=== PATIENT | male | born 1960 | race African-American/Black ===

== ENCOUNTER 2021-01-07 06:16 | Day surgery (SDC) | payer SELFPAY ==
[2021-01-07] VITALS (10 sets, daily range): BP systolic 75–147; BP diastolic 51–83; PULSE 53–75; RESP 16; TEMP 36.1–36.5; O2SAT 95–100; BMI 39.9
--- NOTE | 2021-01-07 06:29 | ECHOD_ITS ---
Reason For Study: LVH Procedure This was a 2D Doppler, Color Flow transthoracic echocardiogram. Myocardial strain analysis was performed in this exam to aid in the assessment of cardiac function. Exam performed in department. Left Ventricle Normal LV size. Moderate eccentric left ventricular hypertrophy. Left ventricular systolic function is normal. The estimated ejection fraction is 65 %. Stage 1 diastolic dysfunction. No regional wall motion abnormalities noted. Right Ventricle Normal RV size. Normal systolic function. Atria Normal left atrium. Normal right atrium. Mitral Valve Normal mitral valve. Tricuspid Valve Normal tricuspid valve. Unable to estimate RV systolic pressure due to inadequate jet, pulmonary artery pressure probably normal. Aortic Valve Normal aortic valve. Trisinus/trileaflet aortic valve. Pulmonic Valve Normal pulmonic valve. Mild (1+) pulmonic valve insufficiency. Great Vessels Normal aortic root. The pulmonary artery is normal size. Normal inferior vena cava. Pericardium/Pleural No pericardial effusion. MMode/2D Measurements & Calculations LVIDd: 4.1 cm IVSd: 1.4 cm Ao root diam: 3.7 cm LVIDs: 2.2 cm LVPWd: 1.2 cm RVDd: 2.7 cm FS: 46.8 % LAV(MOD-bp): 27.7 ml LVAd ap4: 26.5 cm2 LVAd ap2: 23.6 cm2 LAV(MOD-bp) Indexed: 13.8 ml/m2 LVLd ap4: 8.4 cm LVLd ap2: 8.0 cm LAV(MOD-sp2): 36.0 ml EDV(MOD-sp4): 69.4 ml EDV(MOD-sp2): 61.4 ml LAV(MOD-sp4): 18.0 ml EDV(sp4-el): 70.6 ml EDV(sp2-el): 59.7 ml LVAs ap4: 14.4 cm2 LVAs ap2: 12.7 cm2 LVLs ap4: 7.3 cm LVLs ap2: 7.0 cm ESV(MOD-sp4): 26.3 ml ESV(MOD-sp2): 20.3 ml ESV(sp4-el): 24.1 ml ESV(sp2-el): 19.6 ml EF(MOD-sp4): 62.1 % EF(MOD-sp2): 67.0 % EF(sp4-el): 65.8 % SV(MOD-sp4): 43.1 ml SV(MOD-sp2): 41.1 ml SV(sp4-el): 46.4 ml LA dimension(2D): 3.5 cm LA A4 area: 9.6 cm2 RA A4 area: 11.1 cm2 Doppler Measurements & Calculations MV E max case: 46.3 cm/sec Lat Peak E' Case: 9.1 cm/sec Med Peak E' Case: 5.8 cm/sec MV A max case: 58.3 cm/sec E/E' lat: 5.1 E/E' med: 8.1 MV E/A: 0.79 Ao V2 max: 102.7 cm/sec LV V1 max: 93.4 cm/sec PA V2 max: 106.7 cm/sec Ao max P.2 mmHg LV V1 max P.5 mmHg ECHO/Echo Complete Interpretation Summary Normal LV size. Moderate eccentric left ventricular hypertrophy. Left ventricular systolic function is normal. The estimated ejection fraction is 65 %. Stage 1 diastolic dysfunction. The global longitudinal strain is normal. The global longitudinal strain = -20. 9 % (normal). Ordering Physician: Arnold Mckeon Referring Physician: Arnold Mckeon Performed By: Darlene Thomas RDCS
--- NOTE | 2021-01-07 06:34 | CT_ITS ---
STUDY: CARDIAC CALCIUM SCORING - CT CHEST REASON FOR EXAM: Male, 60 years old. CAD RADIATION DOSAGE (If Supplied By Facility): CTDIvol = ( ) mGy, DLP = ( ) mGycm TECHNIQUE: Axial non-enhanced images were acquired through the heart for the sole purpose of measuring coronary artery calcium. Individualized dose optimization techniques were used for this CT. COMPARISON: None. FINDINGS: Calcium score is 0. Extracardiac portions of the chest are unremarkable. There are no lung lesions. Mediastinal contents are normal. CT/Limited Chest CT w/CCTA IMPRESSION: 1. Calcium score 0. 2. A Calcium Score of 0 places the patient in the lowest population percentile. 3. Low future predicted rate of adverse cardiovascular events, less than 10% over the next 10 years. Please go to: [email or web address] , for a description of the calculator. Electronically Signed: Satya Lagos MD at 12:34 EDT Tel , Service support ,
[2021-01-07 07:08] LABS: Absolute Lymphocyte Count 2.26 X10^3/uL (0.83-4.51); Absolute Neutrophil Count 1.4 X10^3/uL (2.0-7.7); Basophil# 0.03 X10^3/uL; Basophil% 0.7 % (0-1); Eosinophil# 0.26 X10^3/uL; Eosinophils% 5.9 % (0-5); Hematocrit 46.2 % (40-54); Hemoglobin 15.1 g/dL (13.0-16.5); Lymphocyte # 2.26 X10^3/ul (0.83-4.51); Lymphocyte % 51.4 % (19-41); Mean Corp Hgb Conc 32.7 g/dL (32-36); Mean Corpuscular Hgb 28.5 pg (27.0-32.0); Mean Corpuscular Volume 87.2 fL (80-94); Monocyte# 0.48 X10^3/uL; Monocyte% 10.9 % (0-10); NRBC Flagged by Analyzer 0 % (0-5); Neutrophil # 1.37 X10^3/uL (2.7-7.7); Neutrophil % 31.1 % (47-70); Platelet Count 149 K/mm3 (150-450); RBC Distribution Width CV 12.6 % (11.6-14.6); RBC Distribution Width SD 40.5 fl (35.1-43.9); White Blood Count 4.4 K/mm3 (4.4-11.0)
[2021-01-07 07:53] LABS: AST(SGOT) 18 U/L (15-37); Alanine Aminotransfer ALT/SGPT 28 U/L (16-61); Albumin, Serum 3.9 g/dL (3.2-5.0); Alkaline Phosphatase 68 U/L (45-117); Anion Gap 8 (5-15); BUN 14 mg/dL (7-18); BUN/Creat Ratio 12.4 RATIO (10-20); Bilirubin, Direct 0.21 mg/dL (0.00-0.30); Calcium,Total 9.3 mg/dL (8.5-10.1); Chloride 104 mmol/L (98-107); Cholesterol 220 mg/dL (200); Creatinine, Serum 1.13 mg/dL (0.70-1.30); EST Glomerular Filtration Rate 70 mL/min (>60); Est Glom Filt Rate - Afr Amer 85 mL/min (>60); Globulin 3.3 g/dL (2.2-4.2); Glucose 91 mg/dL (74-106); High Density Lipoprotein 54 mg/dL; PSA,Total - Annual Screen 0.88 ng/mL (0.00-4.00); Potassium 4.1 mmol/L (3.5-5.1); Protein, Total 7.2 g/dL (6.4-8.2); Sodium Level 138 mmol/L (136-145); Thyroid Stim Hormone (TSH) 0.99 uIU/mL (0.358-3.74); Triglycerides 70 mg/dL; Very Low Density Lipoprotein 14 mg/dL (5-40)
--- NOTE | 2021-01-07 09:11 | STRESSREP ---
Stress Test Report Exercise myocardial perfusion stress test. Reason for evaluation evaluation of chest pain. Medications Crestor. Stress protocol: Resting EKG demonstrates normal sinus rhythm with a rate of 59 bpm. Resting blood pressure is 146/86 mmHg. Terminal T wave inversions noted in lead V3, V4 and V5. The patient exercised according to the regular Frantz protocol, for a total duration of 7 minutes and 15 seconds. The patient completed 1 minute and 15 seconds into stage III of the Frantz protocol. The maximum heart rate attained was 139 bpm which was 86% of max predicted heart rate the maximum workload was 10.1 metabolic equivalents. At rest there were terminal T wave inversions noted at peak exercise upsloping ST changes were noted with did not meet the criteria for ischemia. No clinical angina was noted. Atypical chest discomfort was noted. Occasional premature ventricular complexes were present. The test was terminated due to dyspnea and shortness of breath. The peak blood pressure was 172/92 mmHg. Myocardial perfusion protocol. 14.1 mCi of technetium 99m sestamibi was injected at rest. The patient exercised according to regular Frantz protocol for total duration of 7 minutes and 15 seconds. At peak exercise 44.2 mCi of technetium 99m sestamibi was injected stress images were obtained stress and rest images were reconstructed and compared in the short axis vertical long and horizontal long axis. Gated images were also obtained. Perfusion SPECT analysis: Review of the stress images demonstrated normal uptake of tracer noted in all areas of the myocardium. The resting images similarly demonstrated normal uptake of tracer noted in all areas of the myocardium. No areas of reversibility are noted to suggest ischemia. No previous infarct is noted. Gated SPECT analysis: The gated ejection fraction is 67%. Conclusion: Normal exercise myocardial perfusion stress test at a high workload. Good functional aerobic capacity. No ischemia noted. Preserved ejection fraction.
[2021-01-07] MEDS: Nitroglycerin SL (ED/IMG/CATH) 0.4 MG TABLET SL (11:27)
--- NOTE | 2021-01-07 12:00 | EGD_PTH ---
PATIENT: CORETTA WILSON LOC: [facility] [place] U#:[id number] AGE/SX: 60/M ROOM: RE01/07/[address]: Dr. Arnold Mckeon MD : 1960 BED: DIS: 01/07/2021 SPEC #: [id number] RECD: 01/07/21 13:16 STATUS: AURELIO REQ #: [id number] EDWIN: 01/07/21 12:[address]: Grant Wright DEPT: SURGICAL PATHOLOGY RECD BY: Hannah Hernandez ENTERED: 01/07/21 13:38 SP TYPE: EGD BIOPSY OTHR DR: Dr. Arnold Mckeon MD No Primary Care Phys Tissues: Esophagus, NOS Procedures: Special Stain Group II Surgery Specimen Level IV Alcian Blue/PAS (control) Comments: @ Ordering doctor for SUIV edited from to @ by RGOOD at 01/07/21 150 @ Submitting doctor edited from to @ by RGOOD at 01/07/21 1503 HEADER OPERATION: EGD ([facility] [place] PRE-OP DIAGNOSIS: Epigastric tenderness TISSUE SUBMITTED: Biopsy of distal esophagus MICROSCOPIC DIAGNOSIS Distal esophagus, biopsy: Fragments of gastroesophageal mucosa with mild chronic inflammation. Intestinal metaplasia (goblet cell metaplasia) not identified. See comment. PENNIE:reinier 01/08/2021 COMMENT Alcian blue/PAS stain with matched control is used in the evaluation of the specimen. MICROSCOPIC DESCRIPTION Slides are reviewed. GROSS DESCRIPTION Received in fixative is one container labeled with the patient's name and designated biopsy of distal esophagus. The specimen consists of multiple irregular fragments of light jean soft tissue that in aggregate measure 0.5 x 0.5 x 0.1 cm. The specimen is totally submitted in one cassette. / PENNIE:reinier 01/07/21 TC:3 CPT: 67263, 17948
[2021-01-07] MEDS: Lactated Ringers 1,000 ML 100 ML IV (12:13)
--- NOTE | 2021-01-07 12:24 | PCM.HP.BLA ---
History and Physical Date of Admission: 01/07/21 60-year-old gentleman with past medical history of of LVH hyperlipidemia, hypertension and history of gastroesophageal reflux disease presents for the evaluation of worsening belching and epigastric pain. He has been on Nexium therapy without any relief. The pain happens sometimes every day. Usually last about 20 min and then goes away. It is mostly postprandial. His weight has been stable. He also gets some intermittent nausea. He denies any chest pain or shortness of breath. Past medical history: Hypertension, LVH, GERD Family history: Negative for any GI malignancy, negative for CAD Social history: Former smoker, currently negative for cigarettes. Occasional alcohol Allergies: No known drug allergies Physical examination: Blood is 110/69, pulse of 75 respiratory 16 temperature is 97,, Generally no acute distress On HEENT-normocephalic atraumatic Neck-no JVD lymphadenopathy Heart-positive S1-S2, Respiratory-clear to auscultation bilaterally Abdomen mildly tender in the epigastric region Rectal exam was deferred Extremities no clubbing cyanosis or edema Assessment and plan very pleasant 60 gentleman comes in with epigastric tenderness differential diagnosis does include peptic ulcer disease, hiatal hernia, gastritis, atypical reflux disease. Also differential diagnosis would be biliary colic. We will evaluate his upper GI tract he was explained alternatives, risk, benefits including nondistended bleeding, infection, sepsis, perforation, need for emergency or . He will have an ASA of 1.
--- NOTE | 2021-01-07 12:46 | OP.EGD_ITS ---
Patient Name: Jorge A Wilcox Procedure Date: 01/07/2021 12:17 PM Date of : 1960 Age: 60 Procedure: Upper GI endoscopy Indications: Epigastric abdominal pain, Heartburn Providers: Grant Wright DO Referring MD: Arnold Mckeon Medicines: Propofol per Anesthesia Patient Profile: This is a 60 year old male. Refer to note in patient chart for documentation of history and physical. Patient has symptoms. The symptoms first began October. Complications: No immediate complications. Procedure: Pre-Anesthesia Assessment: - Prior to the procedure, a History and Physical was performed, and patient medications and allergies were reviewed. The patient is competent. The risks and benefits of the procedure and the sedation options and risks were discussed with the patient. All questions were answered and informed consent was obtained. Patient identification and proposed procedure were verified by the physician in the pre-procedure area. Mental Status Examination: alert and oriented. Airway Examination: normal oropharyngeal airway and neck mobility. Respiratory Examination: clear to auscultation. CV Examination: normal. Prophylactic Antibiotics: The patient does not require prophylactic antibiotics. Prior Anticoagulants: The patient has taken no previous anticoagulant or antiplatelet agents. ASA Grade Assessment: II - A patient with mild systemic disease. After reviewing the risks and benefits, the patient was deemed in satisfactory condition to undergo the procedure. The anesthesia plan was to use moderate sedation / analgesia (conscious sedation). Immediately prior to administration of medications, the patient was re-assessed for adequacy to receive sedatives. The heart rate, respiratory rate, oxygen saturations, blood pressure, adequacy of pulmonary ventilation, and response to care were monitored throughout the procedure. The physical status of the patient was re-assessed after the procedure. After obtaining informed consent, the endoscope was passed under direct vision. Throughout the procedure, the patient's blood pressure, pulse, and oxygen saturations were monitored continuously. The Endoscope was introduced through the mouth, and advanced to the second part of duodenum. The upper GI endoscopy was accomplished without difficulty. The patient tolerated the procedure well. Moderate Sedation: Moderate (conscious) sedation was administered by the endoscopy nurse and supervised by the endoscopist. The following parameters were monitored: oxygen saturation, heart rate, blood pressure, and response to care. Total physician intraservice time was 15 minutes. Scope In: 12:33:20 PM Scope Out: 12:37:33 PM Total Procedure Duration Time 0 hours 4 minutes 13 seconds Findings: LA Grade B (one or more mucosal breaks greater than 5 mm, not extending between the tops of two mucosal folds) esophagitis with no bleeding was found 34 to 35 cm from the incisors. Biopsies were taken with a cold forceps for histology. Verification of patient identification for the specimen was done. Estimated blood loss was minimal. A medium-sized hiatal hernia was present. The examined duodenum was normal. Impression: - LA Grade B reflux esophagitis. Biopsied. - Medium-sized hiatal hernia. - Normal examined duodenum. Recommendation: - Discharge patient to home. - Resume previous diet today. - Use Dexilant (dexlansoprazole) 60 mg PO daily for 8 weeks. - Continue present medications. Procedure Code(s): --- Professional --- 74770, Esophagogastroduodenoscopy, flexible, transoral; with biopsy, single or multiple G0500, Moderate sedation services provided by the same physician or other qualified health long term acute care registered nurse performing a gastrointestinal endoscopic service that sedation supports, requiring the presence of an independent trained observer to assist in the monitoring of the patient's level of consciousness and physiological status; initial 15 minutes of intra-service time; patient age 5 years or older (additional time may be reported with 63874, as appropriate) CPT copyright 2017 [employer]. All rights reserved. The codes documented in this report are preliminary and upon ethylbenzene converter operator review may be revised to meet current compliance requirements. Grant Wright DO 01/07/2021 12:45:28 PM This report has been signed electronically. Number of Addenda: 1 Note Initiated On: 01/07/2021 12:17 PM Addendum Number: 1 Addendum Date: 11/22/2021 7:39:24 AM MAC was used instead of moderate sedation for this patient. Grant Wright DO 11/28/2021 4:31:11 PM This report has been signed electronically.
--- NOTE | 2021-01-07 12:47 | OP.CCLET_ITS ---
11/28/2021 No Primary Care Physician Re : Upper GI endoscopy procedure for Jorge A Wilcox Dear Care Physician This procedure was performed on Thursday, January 07, 2021. My impressions and recommendations are as follows: Impressions : - LA Grade B reflux esophagitis. Biopsied. - Medium-sized hiatal hernia. - Normal examined duodenum. Recommendations : - Discharge patient to home. - Resume previous diet today. - Use Dexilant (dexlansoprazole) 60 mg PO daily for 8 weeks. - Continue present medications. My findings are described in the full procedure note, which is enclosed. If I can be of further assistance, please feel free to contact me at . Sincerely, Grant Friend, 01/07/2021 12:45:28 PM This report has been signed electronically.
--- NOTE | 2021-01-07 14:13 | CCTA.WCONT ---
CCTA w/Cont Coronary Arteries Date of Study:: 01/07/21 Chest pain High-resolution computed tomographic imaging of the chest was performed on 01/07/2021 with particular attention paid to the coronary arteries. Images from the examination were analyzed for the presence and extent of coronary calcification using the coronary calcification quantification software. The patient was also injected with 100 cc of intravenous contrast and reconstructed images were obtained to evaluate the coronary anatomy. LEFT MAIN CORONARY ARTERY: Normal LEFT ANTERIOR DESCENDING CORONARY ARTERY: Normal LEFT CIRCUMFLEX CORONARY ARTERY: No significant stenosis RIGHT CORONARY ARTERY: Normal THORACIC AORTA: Normal CORONARY CALCIUM SCORE: 0 Conclusion: Coronary calcium score of 0. Computed tomographic angiographic imaging of the coronary arteries demonstrating no significant stenosis.]
== END 2021-01-07 14:22 ==
LOC: SDC 06:34 → AC 11:43
PROVIDERS: Internal Medicine Gastroenterology; Referring Provider Internal Medicine Cardiovascular Disease; Visit Provider Internal Medicine Cardiovascular Disease
PROC: 0DJ08ZZ Inspection of Upper Intestinal Tract, Via Natural or Artificial Opening Endoscopic (ICD-10-PCS; CPT 43235; principal; 2021-01-07 11:55)
DX: K21.00 Gastro-esophageal reflux disease with esophagitis, without bleeding (principal); K44.9 Diaphragmatic hernia without obstruction or gangrene; I10 Essential (primary) hypertension; K21.9 Gastro-esophageal reflux disease without esophagitis; Z87.891 Personal history of nicotine dependence; R07.9 Chest pain, unspecified
CPT/HCPCS: 43239; 36415; 75574; 76380; 78452; 80048; 80061; 80076; 84153; 84443; 85025; 88305; 88313; 93017; 93306; A9500; J7120; Q9967; A4216; G0103; J2405

== ENCOUNTER → 2022-04-18 | Outpatient (CLI) | payer SELFPAY ==
--- NOTE | 2022-04-18 06:36 | RAD_ITS ---
EXAM: XR CHEST, 2 VIEWS CLINICAL INDICATION: htn TECHNIQUE: Frontal and lateral views of the chest. This report was created using [employer] report generation technology. COMPARISON: XR Chest dated 08/29/2015 FINDINGS: LUNGS AND PLEURAL SPACES: Normal. No consolidation or edema. No pneumothorax. No effusion. HEART: Normal heart size. MEDIASTINUM: No mediastinal or hilar mass. BONES/JOINTS: No acute abnormality. SOFT TISSUES: Normal. RAD/Chest PA and Lateral IMPRESSION: No acute cardiopulmonary abnormality. No interval change. Electronically Signed: Pio Pena MD at 9:25 EST ,
[2022-04-18 07:07] LABS: Absolute Lymphocyte Count 2.19 X10^3/uL (0.83-4.51); Absolute Neutrophil Count 1.7 X10^3/uL (2.0-7.7); Basophil# 0.03 X10^3/uL; Basophil% 0.7 % (0-1); Eosinophil# 0.22 X10^3/uL; Hematocrit 46.2 % (40-54); Hemoglobin 15.2 g/dL (13.0-16.5); Lymphocyte # 2.19 X10^3/ul (0.83-4.51); Lymphocyte % 49.3 % (19-41); Mean Corp Hgb Conc 32.9 g/dL (32-36); Mean Corpuscular Hgb 28.8 pg (27.0-32.0); Mean Corpuscular Volume 87.5 fL (80-94); Mean Platelet Vol. 10.9 fl (6.2-12.0); Monocyte# 0.32 X10^3/uL; Monocyte% 7.2 % (0-10); NRBC Flagged by Analyzer 0 % (0-5); Neutrophil # 1.68 X10^3/uL (2.7-7.7); Neutrophil % 37.8 % (47-70); Platelet Count 160 K/mm3 (150-450); RBC Distribution Width CV 12.4 % (11.6-14.6); RBC Distribution Width SD 39.8 fl (35.1-43.9); Red Blood Count 5.28 M/mm3 (4.6-6.2); White Blood Count 4.4 K/mm3 (4.4-11.0)
--- NOTE | 2022-04-18 07:17 | EKG12_ITS ---
Test Reason : CHEST PAIN Blood Pressure : / mmHG Vent. Rate : 083 BPM Atrial Rate : 083 BPM P-R Int : 142 ms QRS Dur : 088 ms QT Int : 346 ms P-R-T Axes : 050 -03 037 degrees QTc Int : 406 ms Normal sinus rhythm T wave abnormality, consider lateral ischemia Abnormal ECG Unchanged Confirmed by SHASHA OZNUA, ARNOLD ([id number]), brands editor KAYLIE GARNER ([id number]) on 04/21/2022 9:51:39 AM Referred By: Arnold Mckeon Confirmed By:ARNOLD MCKEON MD
--- NOTE | 2022-04-18 07:24 | CT_ITS ---
EXAM: CT CERVICAL SPINE WITHOUT INTRAVENOUS CONTRAST CLINICAL INDICATION: Neck pain. TECHNIQUE: Helically acquired images were obtained of the cervical spine without intravenous contrast. 2D reformatted images were reviewed. This CT exam was performed using one or more of the following dose reduction techniques: automated exposure control, adjustment of the mA and/or kV according to patient size, and/or use of iterative reconstruction technique. This report was created using [employer] report generation technology. COMPARISON: None. FINDINGS: VERTEBRAE: No acute fracture or subluxation. DISCS/SPINAL CANAL/NEURAL FORAMINA: Multilevel disc space narrowing most prominent at C5-6 and C6-7. Mild narrowing of the C5-6 neural foramina related to uncinate joint hypertrophy. SOFT TISSUES: Nuchal calcification consistent with old trauma. No prevertebral soft tissue swelling. LYMPH NODES: Normal. No cervical adenopathy. LUNG APICES: Unremarkable as visualized. Clear. CT/Spine Cervical without Contras IMPRESSION: Moderate spondylosis as described. Electronically Signed: Pio Pena MD at 7:52 EST ,
[2022-04-18 07:43] LABS: AST(SGOT) 16 U/L (15-37); Alanine Aminotransfer ALT/SGPT 30 U/L (16-61); Albumin, Serum 3.9 g/dL (3.2-5.0); Alkaline Phosphatase 73 U/L (45-117); Anion Gap 8 (5-15); BUN 13 mg/dL (7-18); BUN/Creat Ratio 11.9 RATIO (10-20); Bilirubin, Direct 0.16 mg/dL (0.00-0.30); Calcium,Total 8.7 mg/dL (8.5-10.1); Chloride 106 mmol/L (98-107); Cholesterol 124 mg/dL (200); Creatinine, Serum 1.09 mg/dL (0.70-1.30); EST Glomerular Filtration Rate 73 mL/min (>60); Est Glom Filt Rate - Afr Amer 88 mL/min (>60); Globulin 3.3 g/dL (2.2-4.2); Glucose 96 mg/dL (74-106); High Density Lipoprotein 43 mg/dL; PSA,Total - Annual Screen 0.82 ng/mL (0.00-4.00); Potassium 4.2 mmol/L (3.5-5.1); Protein, Total 7.2 g/dL (6.4-8.2); Sodium Level 140 mmol/L (136-145); Thyroid Stim Hormone (TSH) 2.04 uIU/mL (0.358-3.74); Triglycerides 60 mg/dL; Very Low Density Lipoprotein 12 mg/dL (5-40)
--- NOTE | 2022-04-18 10:32 | STRESSREP ---
Stress Test Report Exercise myocardial perfusion stress test. 61-year-old man with a history of chest pain Stress protocol: Resting EKG demonstrates normal sinus rhythm with a rate of 60 bpm and lateral T wave inversions. The resting blood pressure is 128/80 mmHg. The patient exercised according to the regular Frantz protocol for a total duration of 9 minutes attaining a maximum heart rate of 148 bpm which was 93% of maximum predicted heart rate; the maximum workload was 10.1 metabolic equivalents. At rest there were no ST or T wave changes noted to suggest ischemia and at peak exercise upsloping ST changes only were noted which did not meet the criteria for ischemia. No clinical angina was noted the test was terminated due to the target heart rate being achieved/fatigue. The peak blood pressure was 154/70 mmHg. Rate-pressure product was 22,700. Myocardial perfusion protocol. 11.7 mCi of technetium 99m sestamibi was injected at rest. The patient exercised according to regular Frantz protocol for total duration of 9 minutes and at peak exercise 33.4 mCi of technetium 99m sestamibi was injected stress images were obtained stress and rest images were reconstructed in comparing the short axis vertical long and horizontal long axis. Gated images were also obtained. Perfusion SPECT analysis: Review of the stress images demonstrate normal uptake of tracer noted in all areas of the myocardium. The resting images similarly demonstrate normal uptake of tracer noted in all areas of the myocardium. No areas of reversibility are noted to suggest ischemia no previous infarct was noted. Gated SPECT analysis: The gated ejection fraction is 74%. Conclusion: Normal exercise myocardial perfusion stress test at a high workload Preserved ejection fraction.
== END | disposition home or self-care (01) ==
PROVIDERS: Referring Provider Internal Medicine Cardiovascular Disease; Visit Provider Internal Medicine Cardiovascular Disease
DX: M48.02 Spinal stenosis, cervical region (principal); M50.322 Other cervical disc degeneration at C5-C6 level; I10 Essential (primary) hypertension; R07.9 Chest pain, unspecified; M47.812 Spondylosis without myelopathy or radiculopathy, cervical region; I51.7 Cardiomegaly; E78.5 Hyperlipidemia, unspecified; R94.31 Abnormal electrocardiogram [ECG] [EKG]; R53.83 Other fatigue; R00.2 Palpitations; R94.8 Abnormal results of function studies of other organs and systems
CPT/HCPCS: 36415; 71046; 72125; 78452; 80048; 80061; 80076; 84153; 84443; 85025; 93005; 93017; 93306; A9500; A4216; G0103

== ENCOUNTER → 2024-02-08 | Outpatient (CLI) | payer SELFPAY ==
[2024-02-08 06:42] LABS: Absolute Lymphocyte Count 2.14 X10^3/uL (0.83-4.51); Absolute Neutrophil Count 1.8 X10^3/uL (2.0-7.7); Basophil# 0.04 X10^3/uL; Basophil% 0.8 % (0-1); Eosinophil# 0.25 X10^3/uL; Eosinophils% 5.3 % (0-5); Hematocrit 46.8 % (40-54); Hemoglobin 14.9 g/dL (13.0-16.5); Lymphocyte # 2.14 X10^3/ul (0.83-4.51); Lymphocyte % 45.3 % (19-41); Mean Corp Hgb Conc 31.8 g/dL (32-36); Mean Corpuscular Hgb 27.9 pg (27.0-32.0); Mean Corpuscular Volume 87.5 fL (80-94); Mean Platelet Vol. 11.1 fl (6.2-12.0); Monocyte# 0.44 X10^3/uL; Monocyte% 9.3 % (0-10); NRBC Flagged by Analyzer 0 % (0-5); Neutrophil # 1.84 X10^3/uL (2.7-7.7); Neutrophil % 39.1 % (47-70); Platelet Count 163 K/mm3 (150-450); RBC Distribution Width CV 12.9 % (11.6-14.6); Red Blood Count 5.35 M/mm3 (4.6-6.2); White Blood Count 4.7 K/mm3 (4.4-11.0)
[2024-02-08 07:57] LABS: AST(SGOT) 22 U/L (15-37); Alanine Aminotransfer ALT/SGPT 33 U/L (16-61); Albumin, Serum 4.3 g/dL (3.2-5.0); Alkaline Phosphatase 60 U/L (45-117); Anion Gap 4 (5-15); BUN 16 mg/dL (7-18); BUN/Creat Ratio 14.2 RATIO (10-20); Bilirubin, Direct 0.22 mg/dL (0.00-0.30); CRP < 2.90 mg/L (0.0-3.0); Calcium,Total 9.4 mg/dL (8.5-10.1); Chloride 109 mmol/L (98-107); Cholesterol 190 mg/dL (200); Creatinine, Serum 1.13 mg/dL (0.70-1.30); EST Glomerular Filtration Rate 70 mL/min (>60); Est Glom Filt Rate - Afr Amer 84 mL/min (>60); Globulin 2.9 g/dL (2.2-4.2); Glucose 93 mg/dL (74-106); High Density Lipoprotein 54 mg/dL; PSA,Total - Annual Screen 0.96 ng/mL (0.00-4.00); Protein, Total 7.2 g/dL (6.4-8.2); Sodium Level 140 mmol/L (136-145); Triglycerides 71 mg/dL; Very Low Density Lipoprotein 14 mg/dL (5-40)
== END | disposition home or self-care (01) ==
PROVIDERS: Referring Provider Internal Medicine Cardiovascular Disease; Visit Provider Internal Medicine Cardiovascular Disease
DX: R07.9 Chest pain, unspecified (principal); I10 Essential (primary) hypertension; M54.9 Dorsalgia, unspecified; E78.5 Hyperlipidemia, unspecified
CPT/HCPCS: 36415; 71250; 72128; 72131; 74176; 75571; 76380; 78452; 80048; 80061; 80076; 84153; 84443; 85025; 86140; 93017; 93306; A9500; A4216; G0103

== ENCOUNTER 2024-02-09 09:48 | Day surgery (SDC) | payer SELFPAY ==
[2024-02-09] VITALS (9 sets, daily range): BP systolic 102–133; BP diastolic 67–75; PULSE 52–65; RESP 16–18; TEMP 36.1–36.4; O2SAT 97–100; BMI 31.5
--- NOTE | 2024-02-09 11:05 | PCM.PRE.AN2 ---
ASA Classification* ASA Classification ASA Classification: 2 Assessment & Plan Anesthesia* Anesthesia Assessment Anesthesia Assessment: Discussed sedation and/or anesthesia options, risks, benefits, and alternatives with patient/parents/legal guardian/POA. Questions invited. The patient/parents/legal guardian/POA seems to understand and agrees to proceed with anesthesia plan. Reviewed the physical assessment, medical history, allergy history and patient home medications list prior to surgery/procedure/anesthetic and documented any changes. Performed airway and anesthesia risk assessments. Anesthesia Type Anesthesia Type: MAC History Source History Obtained from:: Patient and Chart Anesthesia Focused Assessment* Temperature: 97.3 F Pulse Rate: 65 Blood Pressure: 133/69 Respiratory Rate: 18 Pulse Ox: 99 Oxygen Delivery Method: Room Air Airway Assessment Mouth opens: >3 cm Mallampati Score: III Teeth Condition: Partial (Patient has implants on the right lower jaw and left upper. These are all tight.) Neck Range of motion (ROM): Full ROM Focused Labs Anesthesia Preop lab: CBC WBC 4.7 K/mm3 (4.4-11.0) 02/08/24 06:19 RBC 5.35 M/mm3 (4.6-6.2) 02/08/24 06:19 Hgb 14.9 g/dL (13.0-16.5) 02/08/24 06:19 Hct 46.8 % (40-54) 02/08/24 06:19 Plt Count 163 K/mm3 (150-450) 02/08/24 06:19 CHEMISTRY Potassium 4.0 mmol/L (3.5-5.1) 02/08/24 06:19 Sodium 140 mmol/L (136-145) 02/08/24 06:19 BUN 16 mg/dL (7-18) 02/08/24 06:19 Creatinine 1.13 mg/dL (0.70-1.30) 02/08/24 06:19 Glucose 93 mg/dL (74-106) 02/08/24 06:19 TSH 1.490 uIU/mL (0.358-3.740) 02/08/24 06:19 COAG PT 13.6 SECONDS (11.7-14.9) 08/29/15 07:36 Pre-Assessment Diagnosis/Proposed Procedure Planned Operative Procedure(s): colonoscopy Anesthesia History Anesthesia History - director heart: Anesthesia History - director heart Hx Hospitalization No 02/09/24 10:11 Any Problems With Anesthesia No 02/09/24 10:11 Cholinesterase deficiency Yes 02/09/24 10:11 You/Your Family Experience No 02/09/24 10:11 fever (hyperthermia) with Relationship Recent Exposure to Contagious No 02/09/24 10:11 Disease Does patient have nerve No 02/09/24 10:11 stimulator Patient instructed to have device shut off --Does patient have Pacemaker No 02/09/24 10:11 or ICD? When Was Last Pacemaker Check QUESTION #4 FULL TEXT: You/Your Family Experience fever (hyperthermia) with Anesthesia Last Oral Intake Last Oral intake: Last Oral Intake NPO since 07:00 02/09/24 10:11 Meds taken in AM with sips of No 02/09/24 10:11 water? Meds patient instructed to take am of surgery Any additional information?: Yes NPO since: 07:00 (Patient finished prep at 7 AM.) PONV PONV - director heart: PONV - director heart Female No 02/09/24 10:11 HX of Motion Sickness Yes 02/09/24 10:11 HX of N/V After Surgery No 02/09/24 10:11 Non-Smoker Yes 02/09/24 10:11 Duration of Surgery greater No 02/09/24 10:11 than 60 minutes Number of Risk Factors 2 02/09/24 10:11 PONV Score Moderate Risk 02/09/24 10:11 Height & Weight Height & Weight: Anesthesia: Height & Weight Height 5 ft 7 in 02/09/24 10:11 Weight: 91.4 kg 02/09/24 10:11 Body Mass Index (BMI) 31.5 02/09/24 10:11 Respiratory Assessment Respiratory Assessment - director heart: Respiratory Tract Infection Hx - director heart Hx Respiratory Tract Infection No 02/09/24 10:11 Any additional information?: Yes Hx Respiratory Tract Infection: Yes (Patient states he has intermittent cough.) STOP Sleep Apnea STOP Sleep Apnea - director heart: STOP Sleep Apnea - director heart Hx Hypertension Yes 02/09/24 10:11 Hx Sleep Apnea No 02/09/24 10:11 CPAP BIPAP Do you snore loudly (louder No 02/09/24 10:11 than talking or can be heard Do you often feel tired/ No 02/09/24 10:11 fatigued/ sleepy during daytime? Has anyone observed you stop No 02/09/24 10:11 breathing during sleep? STOP Results Negative 02/09/24 10:11 QUESTION #5 FULL TEXT : Do you snore loudly (louder than talking or can be heard through closed doors)? Tobacco Use History Tobacco Use History - director heart: Tobacco Use History - director heart Tobacco Use Smoking Status Never smoker 02/09/24 10:11 Hx Tobacco Use No 02/09/24 10:11 Years Smoking Packs Smoked per Day Smoking Cessation Date was within the last 15 years Hx Smoking Cessation Date Hx Smoking Cessation Counseling Hematologic Medial History Hematologic Hx - director heart: Hematologic Medical Hx - technical support specialist Hx of Blood Transfusion No 02/09/24 10:11 Hx of Transfusion in last 3 No 02/09/24 10:11 Months Date of Last Transfusion (if within last 3 months) Ever experience any problems No 02/09/24 10:11 with transfusion(s)? Specify any problems Hx of Preganancy in last 3 N/A 02/09/24 10:11 Months Nurse Filling Out Transfusion DPRIEST 02/09/24 10:11 & Questions: Date: 02/09/24 02/09/24 10:11 Time: 10:17 02/09/24 10:11 Patient unable to answer at this time (ie. confused, unrespo /Reproduction History /Reproductive History - director heart: /Reproductive Hx- director heart Hx Now No 02/09/24 10:11 Gestational Age (in weeks): EDC: Hx Hx Para Hx Section SAB PFSH Medical History Hiatal hernia LVH (left ventricular hypertrophy) GERD (gastroesophageal reflux disease) Hyperlipidemia Home Medications ?Medication ?Instructions ?Recorded ?Last Taken ?Type candesartan 16 mg tablet 16 mg PO DAILY #90 tabs 01/07/21 02/06/24 Rx dexlansoprazole 60 mg 60 mg PO DAILY #90 caps 01/07/21 02/06/24 Rx capsule,biphase delayed release (Dexilant) rosuvastatin 20 mg tablet (Crestor) 20 mg PO DAILY #90 tabs 01/07/21 02/06/24 Rx aspirin 81 mg tablet,delayed 81 mg PO QDAY 02/08/24 02/06/24 History release (Adult Aspirin Regimen) Allergy/AdvReac Type Severity Reaction Status Date / Time No Known Allergies Allergy Verified 02/09/24 10:07 Family History Brother Hypertension Surgical History History of left heart catheterization (08/30/15) Social History Smoking Status: Never smoker alcohol intake: current alcohol intake frequency: holidays/special occasions only Review of Systems (Anesthesia) ROS Narrative System reviewed and no additional complaints, except as documented.
--- NOTE | 2024-02-09 11:30 | COLBX_PTH ---
PATIENT: CORETTA WILSON LOC: EN U#:[id number] AGE/SX: 63/M ROOM: RE02/09/[address]: Dr. Grant Wright DO : 1960 BED: DIS: 02/09/2024 SPEC #: [id number] RECD: 02/09/24 13:40 STATUS: AURELIO WAY #: [id number] EDWIN: 02/09/24 11:[address]: Grant Wright DEPT: SURGICAL PATHOLOGY RECD BY: Blanche Garcia ENTERED: 02/10/24 07:41 SP TYPE: COLON BX OTHR DR: No Primary Care Phys Tissues: A - Ileum, NOS B - COLON BIOPSY Procedures: Surgery Specimen Level IV HEADER OPERATION: Colonoscopy with biopsy PRE-OP DIAGNOSIS: GERD, encounter for screening colonoscopy TISSUE SUBMITTED: A- Terminal ileum biopsy, B- Random colon biopsy MICROSCOPIC DIAGNOSIS A. Terminal ileum, biopsy: No pathologic change. B. Colon, random biopsy: Mild melanosis coli. AM. 02/11/2024 MICROSCOPIC DESCRIPTION Slides are reviewed. GROSS DESCRIPTION A. Received in fixative is one container labeled with the patient's name and designated Terminal ileum biopsy. The specimen consists of two irregular fragments of light jean soft tissue that in aggregate measure 0.6 x 0.3 x 0.1 cm. The specimen is totally submitted in one cassette. B. Received in fixative is one container labeled with the patient's name and designated Random colon biopsy. The specimen consists of multiple irregular fragments of light jean soft tissue that in aggregate measure 1.5 x 0.7 x 0.1 cm. The specimen is totally submitted in one cassette. 02/10/2024 TC:5 CPT:00974a0
--- NOTE | 2024-02-09 11:49 | HP.PCM_ITS ---
History and Physical Date of Admission: 02/09/24 CORETTA WILSON, is a 63 M who presents to the office today for initial consult. *[facility] established 02.08.24 pt presents to establish care with [facility]. Pt has a colonoscopy scheduled for tomorrow. Pt reports HB and increased belching when he has white wine, milk, and peanuts. Pt reports he has constipation depending on his diet. Pt reports occasional blood in stool due to fissure and intermittent constipation. Pt reports that his left arm hurts when he sleeps on it and has intermittent muscle twitching in his feet at night. ROS Const Constitutional: Positive for fatigue; No fever(s) or weight change ENT ENT: No difficulty swallowing Gastro GI: Positive for abdominal pain, bloating, constipation, heartburn, excessive flatus and Blood in stool; No belching, change in bowel habits, change in stool character, coffee ground emesis, cramping, diarrhea, difficulty swallowing, feeling full early, incontinent of stools, Vomiting blood/hematemesis, loose stools, Black,tarry stools, nausea/dyspepsia, pain with swallowing, vomiting or other Musc Musculoskeletal: Positive for joint pain, back pain, muscle cramps, numbness, stiffness, tingling and Arthritis Skin Skin: No yellowing of the eye or itchy eyes Neuro Neurology: Positive for numbness and tingling Psych Psychiatric: No anxiety and No depression Endo Endocrine: Positive for fatigue; No weight change Aller/Imm Allergy/Immunologic: No itchy eyes Mario/Lymp Hematologic/Lymphatic: No easy bleeding or easy bruising Exam Const General: cooperative and comfortable Nutritional Appearance: average body habitus and well nourished [facility] Head: normal to inspection Ears: hearing grossly normal bilaterally Nose: external nose normal Face and sinus: normal facial exam Mouth: oral mucosae normal Throat: posterior oropharynx normal Eyes General: appearance normal, both eyes and all related structures Neck Neck: normal visual inspection Chest Chest palpation & inspection: normal inspection of the chest and normal palpation of entire chest wall Resp Effort & Inspection: normal respiratory effort Auscultation: Bilateral: Clear to Auscultation Cardio Palpation: normal PMI Rate: regular rate Rhythm: regular rhythm GI Inspection: normal to inspection Auscultation: normal bowel sounds Percussion: normal to percussion Palpation: no hepatosplenomegaly Skin General: no rashes or lesions noted Neuro General: patient alert Extrem General: normal to inspection Psych Affect: normal affect Assessment and Plan Assessment and Plan (1) GERD (gastroesophageal reflux disease): Status: Acute (2) Encounter for screening colonoscopy: Status: Acute Plan: 63-year-old gentleman with past medical history of hypertension, hyperlipidemia and gastroesophageal reflux disease. I got a chance to know him back in 2020 for some intermittent noncardiac chest pain and refractory reflux disease. He underwent an upper endoscopy and was discovered to have erosive esophagitis without any stricturing or Garcia's esophagus. He is placed on Dexilant therapy and has been doing very well on medical therapy for his reflux disease. He comes back in today in need of a screening colonoscopy. 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 He had a colonoscopy several years ago but there were no adenomatous polyps or abnormalities. He does have a little bit difficulty urinating but as long as he stays hydrated with enough water throughout the day he does pretty well. He will undergo colonoscopy. He was explained alternatives, risk, benefits include not withstanding bleeding, infection, sepsis, perforation, need for return to . Have an ASA of 3. Will also look for hemorrhoidal disease and if he has internal hemorrhoids we will take care of them at the same time. I have examined the patient and the H&P has been reviewed. There are no clinical changes since date of exam.
--- NOTE | 2024-02-09 12:29 | OP.COLON_ITS ---
Patient Name: Jorge A Wilcox Procedure Date: 02/09/2024 11:23 AM Date of : 1960 Age: 63 Procedure: Colonoscopy Indications: Screening for colorectal malignant neoplasm Providers: Grant Wright DO Referring MD: Grant Wright DO Medicines: Monitored Anesthesia Care Patient Profile: This is a 63 year old male. Refer to note in patient chart for documentation of history and physical. Last Colonoscopy: 10 years ago. Complications: No immediate complications. Procedure: Pre-Anesthesia Assessment: - Prior to the procedure, a History and Physical was performed, and patient medications and allergies were reviewed. The patient is competent. The risks and benefits of the procedure and the sedation options and risks were discussed with the patient. All questions were answered and informed consent was obtained. Patient identification and proposed procedure were verified by the physician in the pre-procedure area. Mental Status Examination: alert and oriented. Airway Examination: normal oropharyngeal airway and neck mobility. Respiratory Examination: clear to auscultation. CV Examination: normal. Prophylactic Antibiotics: The patient does not require prophylactic antibiotics. Prior Anticoagulants: The patient has taken no anticoagulant or antiplatelet agents. ASA Grade Assessment: II - A patient with mild systemic disease. After reviewing the risks and benefits, the patient was deemed in satisfactory condition to undergo the procedure. The anesthesia plan was to use monitored anesthesia care (MAC). Immediately prior to administration of medications, the patient was re-assessed for adequacy to receive sedatives. The heart rate, respiratory rate, oxygen saturations, blood pressure, adequacy of pulmonary ventilation, and response to care were monitored throughout the procedure. The physical status of the patient was re-assessed after the procedure. After I obtained informed consent, the scope was passed under direct vision. Throughout the procedure, the patient's blood pressure, pulse, and oxygen saturations were monitored continuously. The colonoscope was introduced through the anus and advanced to the cecum, identified by appendiceal orifice and ileocecal valve. The colonoscopy was performed without difficulty. The patient tolerated the procedure well. The quality of the bowel preparation was adequate. The terminal ileum, ileocecal valve, appendiceal orifice, and rectum were photographed. Scope In: 12:08:13 PM Scope Withdrawal Time 0 hours 8 minutes 32 seconds Scope Out: 12:22:46 PM Total Procedure Duration Time 0 hours 14 minutes 33 seconds Findings: The perianal and digital rectal examinations were normal. An area of mildly congested mucosa was found in the sigmoid colon, in the descending colon and in the ascending colon. Biopsies were taken with a cold forceps for histology. Verification of patient identification for the specimen was done. Estimated blood loss was minimal. The terminal ileum appeared normal. Biopsies were taken with a cold forceps for histology. Verification of patient identification for the specimen was done. Estimated blood loss was minimal. The exam was otherwise without abnormality on direct and retroflexion views. Non-bleeding internal hemorrhoids were found during retroflexion. The hemorrhoids were Grade I (internal hemorrhoids that do not prolapse). Impression: - Congested mucosa in the sigmoid colon, in the descending colon and in the ascending colon. Biopsied. - The examined portion of the ileum was normal. Biopsied. - The examination was otherwise normal on direct and retroflexion views. - Non-bleeding internal hemorrhoids. Recommendation: - Repeat colonoscopy in 10 years for screening purposes. - Continue present medications. Procedure Code(s): --- Professional --- 23621, Colonoscopy, flexible; with biopsy, single or multiple CPT copyright 2021 [employer]. All rights reserved. The codes documented in this report are preliminary and upon exterior designer review may be revised to meet current compliance requirements. Grant Wright DO 02/09/2024 12:28:21 PM This report has been signed electronically. Number of Addenda: 0 Note Initiated On: 02/09/2024 11:23 AM
--- NOTE | 2024-02-09 12:29 | OP.CCLET_ITS ---
02/09/2024 No Primary Care Physician Re : Colonoscopy procedure for Jorge A Wilcox Dear Care Physician This procedure was performed on Friday, February 09, 2024. My impressions and recommendations are as follows: Impressions : - Congested mucosa in the sigmoid colon, in the descending colon and in the ascending colon. Biopsied. - The examined portion of the ileum was normal. Biopsied. - The examination was otherwise normal on direct and retroflexion views. - Non-bleeding internal hemorrhoids. Recommendations : - Repeat colonoscopy in 10 years for screening purposes. - Continue present medications. My findings are described in the full procedure note, which is enclosed. If I can be of further assistance, please feel free to contact me at . Sincerely, Grant Wright, 02/09/2024 12:28:21 PM This report has been signed electronically.
--- NOTE | 2024-02-09 12:30 | PCM.POST.ANE ---
Anesthesia: Postop Eval I Current Vital Signs Temperature: 97 F Pulse Rate: 64 Blood Pressure: 104/67 Respiratory Rate: 18 Pulse Ox: 100 Oxygen Delivery Method: Room Air Assessment Airway patent: Yes Spontaneous unlabored respirations: Yes Mental status: Asleep nausea: No Vomiting: No Anesthesia Complication: No Fluid Hydration Crystalloid volume administer (ml): 60 Total IV fluid infused: 60 Progress Note Anesthesia document: Postop Eval 1 completed: Yes
--- NOTE | 2024-02-09 13:12 | CT_ITS ---
STUDY: CT ABDOMEN AND PELVIS WITH CONTRAST REASON FOR EXAM: Male, 63 years old. Renal mass. RADIATION DOSAGE (If Supplied By Facility): CTDIvol = ( 25.07 ) mGy, DLP = ( 1035.42 ) mGycm TECHNIQUE: Transaxial images were obtained from the dome of the diaphragm to the symphysis pubis without oral contrast. IV 100mL Isovue-300 was administered. Sagittal and coronal images were reconstructed. Individualized dose optimization techniques were used for this CT. COMPARISON: Comparison is made with prior study dated February 08, 2024. FINDINGS: Mild increased markings at the lung bases suggestive of underlying atelectasis and/or scarring. The visualized portions of the heart are within normal limits. There is decreased attenuation of the liver consistent with steatosis. Normal gallbladder and extrahepatic biliary system. Normal spleen. Normal pancreas. Normal bilateral adrenal glands. There is a 1.2 cm predominantly cystic structure in the upper pole of the right kidney. A similar-appearing hypodense nodule suggestive of a cyst measuring 1.2 cm along the lateral midportion of the right kidney. There is evidence of a complex solid and cystic mass in the midportion of the left kidney with the peripheral calcification along the cystic component along its lateral aspect. This measures 3.4 cm x 2.4 cm. Correlation with the ultrasound of both kidneys recommended. There is a small hiatal hernia. Normal small intestine. Normal colon. The appendix is visualized and appears normal. There is scattered atherosclerotic calcification of the abdominal aorta, without a demonstrated aneurysm. Normal inferior vena cava. Normal retroperitoneum. Normal urinary bladder. Heterogeneous enlargement of the prostate. There is a small umbilical hernia containing fat. There are mild degenerative changes of the visualized lumbar spine. CT/Abdomen/Pelvis WITH Contrast IMPRESSION: Complex cystic structure in the left kidney as described. Correlation with ultrasound of both kidneys recommended. Electronically Signed: Jayesh Madrigal MD at 14:16 EST ,
--- NOTE | 2024-02-09 14:21 | US_ITS ---
STUDY: RENAL ULTRASOUND - COMPLETE REASON FOR EXAM: Male, 63 years old. Renal mass TECHNIQUE: Ultrasound evaluation of the kidneys was performed with real-time and static webb-scale imaging. COMPARISON: Comparison made with prior CT scan abdomen and pelvis done earlier today. FINDINGS: RIGHT KIDNEY: Normal location of the right kidney, which is normal in size. The right kidney measures 10.7 cm x 6.5 cm x 5.5 cm. There is a normal cortex of the right kidney. The renal cortex measures 1.6 cm. There is a septated cyst in the upper pole of the kidney measuring 1.9 cm x 1.7 cm x 1.5 cm. A septated cyst measuring 1.1 cm x 1.1 cm x 1.4 cm is also seen in the mid lateral aspect of the right kidney. There are no right renal calculi. There is no right hydronephrosis. DISTAL RIGHT URETER: There is non-visualization of the distal right ureter. There is no demonstrated right ureterovesical junction calculus. There is a visualized right ureteral jet. LEFT KIDNEY: Normal location of the left kidney, which is normal in size. The left kidney measures 10.7 cm x 4.9 cm x 5.6 cm. There is a normal cortex of the left kidney. The renal cortex measures 1.1 cm. Complex solid and cystic mass is seen in the midportion of the kidney measuring 4.7 cm x 3.7 cm x 4.3 cm. A complex cystic mass is also seen in the region of the central portion of the kidney measuring 2.5 cm x 2.2 cm x 1.8 cm. Increased vascularity is present. A calcific rim is seen. A benign-appearing cyst is also seen in the lower pole measuring 1.1 cm x 1.1 cm x 1.2 cm. There are no left renal calculi. There is no left hydronephrosis. DISTAL LEFT URETER: There is non-visualization of the distal left ureter. There is no demonstrated left ureterovesical junction calculus. There is a visualized left ureteral jet. BLADDER: The distended urinary bladder has a volume of 92 ml. There is a normal wall thickness of the distended urinary bladder. There is no demonstrated mass within the urinary bladder. There are no demonstrated bladder calculi. US/Kidney and Bladder IMPRESSION: Complex mass in the left kidney as described. Urologic consultation recommended. Electronically Signed: Jayesh Madrigal MD at 8:54 EST ,
--- NOTE | 2024-02-09 16:19 | PCM.POSTANE2 ---
Anesthesia Postop Eval I Sum Postop Eval Completion status Anesthesia document: Postop Eval 1 completed: Yes Anesthesia Postop Eval I Summary Anesthesia Postop Eval I Summary: Anesthesia Postop Eval I: Assessment Summary Airway patent Yes 02/09/24 12:31 [email or web address] Spontaneous unlabored Yes 02/09/24 12:31 [email or web address] respirations Mental status Asleep 02/09/24 12:31 [email or web address] nausea No 02/09/24 12:31 [email or web address] Vomiting No 02/09/24 12:31 [email or web address] Anesthesia Postop Eval I: Fluid Summary Crystalloid volume administer 60 02/09/24 12:31 [email or web address] (ml) Colloids volume administered ( ml) Blood Product volume administered (ml) Total IV fluid infused 60 02/09/24 12:31 [email or web address] Anesthesia Postop Eval I: Summary Notes Anesthesia Complication No 02/09/24 12:31 [email or web address] Anesthesia Complication Comment: Post-operative progress note Anesthesia: Postop Eval II Evaluation Mental status: Awake and Calm Pain Level: 0 nausea: No Vomiting: No Complications Anesthesia Complication: No
== END 2024-02-09 14:08 | disposition home or self-care (01) ==
LOC: EN 09:56 → AC 09:57
PROVIDERS: Referring Provider Internal Medicine Gastroenterology; Visit Provider Internal Medicine Gastroenterology
PROC: 0DJD8ZZ Inspection of Lower Intestinal Tract, Via Natural or Artificial Opening Endoscopic (ICD-10-PCS; CPT 45378; principal; 2024-02-09 11:25)
DX: Z12.11 Encounter for screening for malignant neoplasm of colon (principal); K21.9 Gastro-esophageal reflux disease without esophagitis; K64.0 First degree hemorrhoids; K63.89 Other specified diseases of intestine; R53.83 Other fatigue
CPT/HCPCS: 45380; 74177; 76770; 88305; Q9967; A4216; J2405